=== PATIENT | male | born 1955 | race Caucasian/White ===

== ENCOUNTER 2017-08-11 14:22 | Observation (INO) | payer OTHER ==
--- NOTE | 2017-08-11 14:38 | PDOC ---
Rapid Medical Evaluation Time Seen by Provider: 08/11/17 14:25 Medical Evaluation: 08/11/17 14:25 The patient presents with a chief complaint of: left sided chest pain for "years " but now getting worse. Comes and goes. Just came back from [place] and did not take his meds. He's been off of them for 2 months. Went to [address] [facility] PCP who sent him here for abnorm EKG. PMH: 2 stents in past, CAD. Meds. stattin, plavix, metoprolol, asa 81, lisinopril off for 2 months. I have performed a brief in-person evaluation of this patient; EKG in triage is ST inversions in I, II, AVL, AVF, V2, V4, V5, V6 with LV hypertrophy noted on large QRS peaks. Pertinent physical exam findings: ambulatory, in no respiratory distress I have ordered the following: EKG, CXR, labs, cardiac profile, monitor, in Main ED. The patient will proceed to the ED for further evaluation.
[2017-08-11 14:40] VITALS: BMI 28.7
[2017-08-11 15:02] LABS: BASO % 0.6 % (0-2.0); EOS % 2.3 % (0-4.5); HEMATOCRIT 44.3 % (35.4-49); HEMOGLOBIN 14.8 GM/dL (11.7-16.9); LYMPH % 14.5 % (8-40); MCH 28.4 pg (25.7-33.7); MCHC 33.3 g/dl (32.0-35.9); MEAN CELL VOLUME 85.1 fl (80-96); MEAN PLT VOLUME 9.3 fl (7.5-11.1); MONO % 11.3 % (3.8-10.2); NEUT % 71.3 % (42.8-82.8); PLATELET COUNT 255 K/MM3 (134-434); RBC 5.21 M/mm3 (4.00-5.60); RDW 14.1 % (11.9-15.9); WHITE BLOOD COUNT 7.6 K/mm3 (4.0-10.0)
[2017-08-11] MEDS ORDERED: NITROGLYCERIN SUBLINGUAL 1/150 0.4 MG TAB SL ONE (15:10)
[2017-08-11] MEDS ORDERED: ASPIRIN 81 MG CHEWABLE TABLETS PO ONE (15:10)
[2017-08-11 15:19] LABS: INR 0.95 (0.82-1.09); PROTHROMBIN TIME (PATIENT) 10.7 SEC (9.98-11.88)
[2017-08-11 15:22] LABS: ACTIVATED PTT 31.2 SECONDS (26.9-34.4)
[2017-08-11 15:29] LABS: ALBUMIN 3.8 g/dl (3.4-5.0); ANION GAP 9 (8-16); BILIRUBIN,TOTAL 0.8 mg/dL (0.2-1.0); BLOOD UREA NITROGEN 17 mg/dL (7-18); CALCIUM 8.9 mg/dL (8.5-10.1); CHLORIDE 107 mmol/L (98-107); CO2 24 mmol/L (21-32); GLUCOSE,RANDOM 78 mg/dL (74-106); POTASSIUM 4.2 mmol/L (3.5-5.1); SGOT/AST 15 U/L (15-37); SGPT/ALT 19 U/L (12-78); SODIUM 140 mmol/L (136-145); TOT PROT 7.5 g/dl (6.4-8.2)
[2017-08-11 15:32] LABS: ALK PHOS 78 U/L (45-117)
[2017-08-11] MEDS ORDERED: NITROGLYCERIN SUBLINGUAL 1/150 0.4 MG TAB ONE (15:42)
[2017-08-11] MEDS ORDERED: METOPROLOL TARTRATE 50 MG TABLET (FP) ONE (15:43)
[2017-08-11] MEDS ORDERED: ASPIRIN 81 MG CHEWABLE TABLETS ONE (15:43)
--- NOTE | 2017-08-11 15:55 | PDOC ---
History of Present Illness - General Chief Complaint: Chest Pain Stated Complaint: CHEST PAIN Time Seen by Provider: 08/11/17 14:25 History Source: Patient Exam Limitations: Language Barrier - History of Present Illness Initial Comments: 08/11/17 15:45 Patient is a 61M with history of CAD s/p stenting, HTN, HLD and smoking history here today complaining of chest pain. He was seen in his physicians office and an EKG was done which showed diffuse ST inversions, causing him to be referred to the ER. Patient states that he currently has no chest pain. His chest pain is worsened with exertion and improved with rest. He denies changes in pain with palpation and exertion. He denies history of blood clots, recent travel, leg swelling. Denies fevers, chills, nausea, vomiting. Patient states that he has not been taking his prescribed medication for 2 months. Past History - Past Medical History Allergies/Adverse Reactions: Allergies Allergy/AdvReac Type Severity Reaction Status Date / Time No Known Allergies Allergy Verified 08/11/17 14:32 Cardiac Disorders: Yes (CAD STENTS X2) COPD: No DVT: No HTN: Yes Hypercholesterolemia: Yes - Surgical History Abdominal Surgery: Yes (BILATERAL INGUNIAL HERNIA REPAIR) - Immunization History Immunization Up to Date: Yes - Suicide/Smoking/Psychosocial Hx Smoking History: Current every day smoker Number of Cigarettes Smoked Daily: 3 Information on smoking cessation initiated: No Hx Alcohol Use: No Drug/Substance Use Hx: No Substance Use Type: None Review of Systems - Review of Systems Comments:: 08/11/17 15:47 GENERAL/CONSTITUTIONAL: No fever or chills. No weakness. HEAD, EYES, EARS, NOSE AND THROAT: No change in vision. No sore throat. CARDIOVASCULAR: Positive for chest pain and shortness of breath RESPIRATORY: No cough, wheezing, or hemoptysis. GASTROINTESTINAL: No nausea, vomiting, diarrhea or constipation. GENITOURINARY: No dysuria, frequency, or change in urination. MUSCULOSKELETAL: No joint or muscle swelling or pain. Positive for lower back pain. SKIN: No rash NEUROLOGIC: No headache, vertigo, loss of consciousness, or change in strength/ sensation. ENDOCRINE: No increased thirst. No abnormal weight change HEMATOLOGIC/LYMPHATIC: No anemia, easy bleeding, or history of blood clots. ALLERGIC/IMMUNOLOGIC: No hives or skin allergy. *Physical Exam - Vital Signs Last Vital Signs Temp Pulse Resp BP Pulse Ox 98.1 F 67 15 196/129 98 08/11/17 14:32 08/11/17 14:32 08/11/17 14:32 08/11/17 14:32 08/11/17 14:32 - Physical Exam Comments: 08/11/17 15:48 GENERAL: Awake, alert, and fully oriented, in no acute distress HEAD: No signs of trauma, normocephalic, atraumatic EYES: PERRLA, EOMI, sclera anicteric, conjunctiva clear ENT: Auricles normal inspection, hearing grossly normal, nares patent, oropharynx clear without exudates. Moist mucosa NECK: Normal ROM, supple, no lymphadenopathy, JVD, or masses LUNGS: No distress, speaks full sentences, clear to auscultation bilaterally HEART: Regular rate and rhythm, normal S1 and S2, no murmurs, rubs or gallops, peripheral pulses normal and equal bilaterally. ABDOMEN: Soft, nontender, normoactive bowel sounds. No guarding, no rebound. No masses EXTREMITIES: Normal inspection, Normal range of motion, no edema. No clubbing or cyanosis. NEUROLOGICAL: Cranial nerves II through XII grossly intact. Normal speech, normal gait, no focal sensorimotor deficits SKIN: Warm, Dry, normal turgor, no rashes or lesions noted. Heart Score/ECG Review - History History: Moderately suspicious - Electrocardiogram EKG: Significant ST-depression - Age Age: 45-65 - Risk Factors Risk Factors Heart Score: Yes Hx Hypercholesterolemia, Yes Hx Hypertension, Yes Smoking History Based on the list above the patient has:: >/=3 risk factors or Hx atherosclerotic disease - Troponin Troponin: </= normal limit - Score Heart Score - Total: 6 ED Treatment Course - LABORATORY CBC & Chemistry Diagram: 08/11/17 14:53 08/11/17 14:53 - ADDITIONAL ORDERS Additional order review: Laboratory Results 08/11/17 08/11/17 14:53 14:53 PT with INR 10.70 INR 0.95 PTT (Actin FS) 31.2 Sodium 140 Potassium 4.2 Chloride 107 Carbon Dioxide 24 Anion Gap 9 BUN 17 Creatinine 1.0 Creat Clearance w eGFR > 60 Random Glucose 78 Calcium 8.9 Total Bilirubin 0.8 AST 15 ALT 19 Alkaline Phosphatase 78 Creatine Kinase 93 Troponin I < 0.02 Total Protein 7.5 Albumin 3.8 08/11/17 14:53 RBC 5.21 MCV 85.1 MCHC 33.3 RDW 14.1 MPV 9.3 Neutrophils % 71.3 Lymphocytes % 14.5 Monocytes % 11.3 H Eosinophils % 2.3 Basophils % 0.6 Medical Decision Making - Medical Decision Making 08/11/17 15:49 Patient is a 61M with history of CAD s/p stenting, tobacco abuse, htn, hld here today complaining of chest pain. Vital signs notable for hypertension. Patient history suspect given language barrier and poor compliance. Given 162mg aspirin and 0.4mg nitro. Differential diagnosis includes, but is not limited to: ACS, arrhythmia, pneumonia. Do not believe patient had PE given lack of risk factors , 0 on Well's. EKG shows normal sinus rhythm with rate of 62. Normal axis. No st elevations. ST depressions in V4, V5. T wave inversions in V4-V5, I, II, aVL. Biphasic t wave in V2. EKG shows LVH. No prior EKG available. Concerning EKG. Repeat EKG shows no acute changes from above. Done due to concerning waveforms on monitor. Dr Sanchez from Cardiology consulted and evaluated patient. Recommends admission for stress testing if troponin is negative, schedule cath if positive. Recommends treated blood pressure with metoprolol for now. No need for IV meds given lack of chest pain at this moment. 08/11/17 15:56 Laboratory Tests 08/11/17 08/11/17 08/11/17 14:53 14:53 14:53 WBC 7.6 Hgb 14.8 Hct 44.3 Plt Count 255 INR 0.95 Creat Clearance w eGFR > 60 Troponin I < 0.02 CBC normal. INR normal. Troponin undetectable. CMP reassuring. HEART score 6. Will admit to hospitalist. *DC/Admit/Observation/Transfer Diagnosis at time of Disposition: Chest pain - Discharge Dispostion Condition at time of disposition: Stable Admit: Yes - Referrals Referrals: ON STAFF,NOT [Primary Care Provider] - - Patient Instructions - Post Discharge Activity
--- NOTE | 2017-08-11 16:30 | CON.CARD ---
Consult Consult Specialty:: Cardiology Referred by:: Dr. Marks Reason for Consultation:: Chest pain with abnormal ECG - History of Present Illness Chief Complaint: Chest pain History of Present Illness: 61 year-old Palauan speaking man with a a history of smoking, hypertension, hyperlipidemia, CAD s/p stenting in the past presented to ED 08/11/2017 with chest pain. The patient had intemittent chest pain 2 days prior to his presentation. He was seen in his physicians office and EKG showed marked abnormalities. He was referred to ED for further evaluation. The patient has no chest pain after arrived in ED. His chest pain was predominantly exertional and improved with rest. He denies SOB, palpitation, dizziness, syncope or near syncope. No edema, orthopnea or PND. He has good baseline exercise tolerance in spite of exertional chest pain. He is able to walk 10 block in normal pace. ECG 08/11/2017 showed sinus rhythm. Normal axis. LVH with marked lateral (V4-V6) ST depressionn and T inversion. T wave is biphasic in anterior precordial lead High lateral and inferior T inversion. First set of cardiac enzymes are negative. - History Source History Provided By: Patient Limitations to Obtaining History: No Limitations - Past Medical History Cardio/Vascular: Yes: CAD, HTN - Alcohol/Substance Use Hx Alcohol Use: No - Smoking History Smoking history: Current every day smoker Aproximately how many cigarettes per day: 3 Home Medications - Allergies Allergies/Adverse Reactions: Allergies Allergy/AdvReac Type Severity Reaction Status Date / Time No Known Allergies Allergy Verified 08/11/17 14:32 Review of Systems - Review of Systems Constitutional: reports: No Symptoms Eyes: reports: No Symptoms HENT: reports: No Symptoms Neck: reports: No Symptoms Cardiovascular: reports: Chest Pain Respiratory: reports: No Symptoms Gastrointestinal: reports: No Symptoms Genitourinary: reports: No Symptoms Breasts: reports: No Symptoms Reported Musculoskeletal: reports: No Symptoms Integumentary: reports: No Symptoms Neurological: reports: No Symptoms Endocrine: reports: No Symptoms Hematology/Lymphatic: reports: No Symptoms Psychiatric: reports: No Symptoms Vital Signs: Vital Signs Temperature 98.1 F 08/11/17 14:32 Pulse Rate 67 08/11/17 14:32 Respiratory Rate 15 08/11/17 14:32 Blood Pressure 196/129 08/11/17 14:32 O2 Sat by Pulse Oximetry (%) 98 08/11/17 14:32 General: Well developed. Well nourished. No acute distress. Head: Normocephalic. Atraumatic, Eyes: PERRLA, EOMI. Sclerae anicteric. Conjunctivae clear. Neck: Supple. No JVD. No bruits. Heart: Normal S1, S2: Regularly regular rhythm and rate. No murmur. No gallop or rub. Lungs: Symmetrical air entry. Clear to auscultation. No crackle. No wheezing or rhonchi. Abdomen: Soft. Bowel sound positive. Non tender. No masses. Extremities: No edema. Venous stasis. No clubbing or cyanosis. PD 2+, equal bilaterally. Neuro: Intact, no focal findings. AAO X3. - Other Data Labs, Other Data: CBC, BMP 08/11/17 14:53 08/11/17 14:53 INR, PTT INR 0.95 (0.82-1.09) 08/11/17 14:53 Troponin, BNP 08/11/17 14:53 Troponin I < 0.02 Troponin, BNP 08/11/17 14:53 Troponin I < 0.02 ECG 08/11/2017 showed sinus rhythm. Normal axis. LVH with marked lateral (V4-V6) ST depressionn and T inversion. T wave is biphasic in anterior precordial lead High lateral and inferior T inversion. Imaging - Results EKG: Image Reviewed (ECG 08/11/2017 showed sinus rhythm. Normal axis. LVH with marked lateral (V4-V6) ST depressionn and T inversion. T wave is biphasic in anterior precordial lead High lateral and inferior T inversion.) Assessment/Plan 61 year-old [place] speaking man with a a history of smoking, hypertension, hyperlipidemia, CAD s/p stenting in the past presented to ED 08/11/2017 with chest pain. He had predominantly exertional and improved with rest. ECG 2017 showed sinus rhythm. Normal axis. LVH with marked lateral (V4-V6) ST depressionn and T inversion. T wave is biphasic in anterior precordial lead High lateral and inferior T inversion. First set of cardiac enzymes are negative. 1) Unstable angina with new exertional chest pain and prior history of CAD s/p stenting. -Serial cardiac enzymes and ECG to rule out acute MD. -Start aspirin, Plavix, Metoprolol and atorvastatin. -Obtain an echocardiogram. -Obtain a treadmill exercise nuclear stress test after rule out of MD. 2) HTN: Start Metoprolol tartrate 50 mg BID. May need additional antihypertensive med. We will follow with you.
--- NOTE | 2017-08-11 18:02 | HP ---
<Rigoberto Jeter - Last Filed: 08/11/17 19:37> CHIEF COMPLAINT: chest pain, sent by pcp PCP: Sees doctors at [facility] ([address]) HISTORY OF PRESENT ILLNESS: 61 y/o M w/PMH CAD s/p stents x2, HTN, HLD presents to ER for chest pain and sent in by PCP today. Pt states he has had chest pain for 2 days thats worse with exertion and better with rest. Pain located in mid-sternum and rated at a 7 /10 when it was at its worst. Pt saw PCP today for CP and had EKG done and was sent to ER for chest pain and EKG findings. He denies any SOB, cough, nausea, vomiting, diaphoresis, pain with respiration in chest, reproducible pain, swelling in LE, dysuria, diarrhea, constipation, fevers, chills, abd pain, dizziness. Pt states his chest pain was alleviated in ER before receiving any meds. At this time he still has no chest pain but does complain of b/l temporal JEFF. ER course was notable for: (1) ASA, Lopressor, nitroglycerin, EKG (2) (3) Recent Travel: 20 days ago came back from [email or web address]. PAST MEDICAL HISTORY: CAD, HTN, HLD PAST SURGICAL HISTORY: CAD s/p stents x2 (2006); B/L inguinal hernia repair Social History: Smoking: stopped smoking 2006. Smoked 1/2 - 1 ppd until 2006. Currently smokes 2 cigars/day Alcohol: 1 Liter of rum every weekend Drugs: denies Family History: n-c Allergies No Known Allergies Allergy (Verified 08/11/17 14:32) HOME MEDICATIONS: REVIEW OF SYSTEMS CONSTITUTIONAL: Absent: fever, chills HEENT: +headache Absent: visual changes CARDIOVASCULAR: +chest pain Absent: chest pain, lightheadedness, peripheral edema RESPIRATORY: Absent: cough, shortness of breath GASTROINTESTINAL: Absent: abdominal pain, nausea, vomiting, diarrhea, constipation GENITOURINARY: Absent: dysuria NEUROLOGIC: +headache Absent: dizziness PHYSICAL EXAMINATION Vital Signs - 24 hr 08/11/17 08/11/17 14:32 16:46 Temperature 98.1 F Pulse Rate 67 Pulse Rate [ 57 L Apical] Respiratory 15 20 Rate Blood Pressure 196/129 Blood Pressure 141/100 [Right Arm] O2 Sat by Pulse 98 100 Oximetry (%) GENERAL: Awake, alert, and fully oriented, in no acute distress. HEAD: Normal with no signs of trauma. EYES: extraocular movements intact, sclera anicteric, conjunctiva clear. EARS, NOSE, THROAT: Moist mucous membranes. LUNGS: Breath sounds equal, clear to auscultation bilaterally. No wheezes, and no crackles. No accessory muscle use. HEART: Regular rate and rhythm, normal S1 and S2, +s4 heart sound, no murmurs ABDOMEN: Soft, nontender, not distended, normoactive bowel sounds, no guarding UPPER EXTREMITIES: 2+ pulses, No peripheral edema. LOWER EXTREMITIES: 2+ pulses, No peripheral edema. NEUROLOGICAL: Normal speech. Gait not observed. PSYCHIATRIC: Cooperative. Good eye contact. Appropriate mood and affect. SKIN: Warm, dry Laboratory Results - last 24 hr 08/11/17 08/11/17 08/11/17 14:53 14:53 14:53 WBC 7.6 RBC 5.21 Hgb 14.8 Hct 44.3 MCV 85.1 MCH 28.4 MCHC 33.3 RDW 14.1 Plt Count 255 MPV 9.3 Neutrophils % 71.3 Lymphocytes % 14.5 Monocytes % 11.3 H Eosinophils % 2.3 Basophils % 0.6 PT with INR 10.70 INR 0.95 PTT (Actin FS) 31.2 Sodium 140 Potassium 4.2 Chloride 107 Carbon Dioxide 24 Anion Gap 9 BUN 17 Creatinine 1.0 Creat Clearance w eGFR > 60 Random Glucose 78 Calcium 8.9 Total Bilirubin 0.8 AST 15 ALT 19 Alkaline Phosphatase 78 Creatine Kinase 93 Troponin I < 0.02 Total Protein 7.5 Albumin 3.8 Imaging: Head CT: No evidence of acute intracranial pathology CXR: No definite airspace consolidation or pleural effusion. EKG: Normal axis. LVH with marked lateral (V4-V6) ST depressionn and T inversion. T wave is biphasic in anterior precordial lead High lateral and inferior T inversion.) ASSESSMENT/PLAN: 61 y/o M w/PMH CAD s/p stents x2, HTN, HLD presents to ER for chest pain and being evaluated for ACS vs unstable angina. -Chest pain secondary to unstable angina, r/o ACS -Trend trops -c/w aspirin, plavix, metoprolol, atorvastatin -echo, lipid panel, tsh -cardio consulted, follow with cardio recs -JEFF -Head CT negative for acute pathology, there was concern for bleed with elevated BP and Wellen's sign on EKG -HTN urgency -metoprolol tartrate given in er -c/w metoprolol 50mg bid -better controlled s/p metoprolol in ER -HLD -c/w atorvastatin -DVT ppx -SCDs -FEN -No fluids -monitor electrolytes -NPO after midnight -Dispo: Admit to tele Visit type - Emergency Visit Emergency Visit: Yes ED Registration Date: 08/11/17 Care time: The patient presented to the Emergency Department on the above date and was hospitalized for further evaluation of their emergent condition. - New Patient This patient is new to me today: Yes Date on this admission: 08/11/17 - Critical Care Critical Care patient: No Hospitalist Screening - Colonoscopy Questionnaire Colonoscopy Questionnaire: Colonoscopy Questionnaire - Patient: 50 - 75 years old and never had a screening colonoscopy: Unknown History of colon or rectal polyps, or CA: Unknown History of IBD, Crohn's disease or UC: Unknown History of abdominal radiation therapy as a child: Unknown - Relative: 1 with colon or rectal CA, or polyps at age 60 or younger: Unknown Colon or rectal CA diagnosed at age 45 or younger: Unknown Multiple relatives with colon or rectal CA: Unknown - Outcome: Screening Result: Negative Screen <Sundeep Knight - Last Filed: 08/11/17 20:19> Patient is c/o having headache, CT of head was ordered which was negative for bleed, also stated that he has not eaten since this morning which might be the reason for his headache, besides having elevated blood pressure. Presneted for having CP, will get 3 sets of Troponin, ekg in am. Cardio is consulted . Vital Signs Temperature 98.0 F 08/11/17 20:11 Pulse Rate 62 08/11/17 20:11 Respiratory Rate 18 08/11/17 20:11 Blood Pressure 143/90 08/11/17 20:11 O2 Sat by Pulse Oximetry (%) 98 08/11/17 20:11 CBCD WBC 7.6 K/mm3 (4.0-10.0) 08/11/17 14:53 RBC 5.21 M/mm3 (4.00-5.60) 08/11/17 14:53 Hgb 14.8 GM/dL (11.7-16.9) 08/11/17 14:53 Hct 44.3 % (35.4-49) 08/11/17 14:53 MCV 85.1 fl (80-96) 08/11/17 14:53 MCHC 33.3 g/dl (32.0-35.9) 08/11/17 14:53 RDW 14.1 % (11.9-15.9) 08/11/17 14:53 Plt Count 255 K/MM3 (134-434) 08/11/17 14:53 MPV 9.3 fl (7.5-11.1) 08/11/17 14:53 CMP Sodium 140 mmol/L (136-145) 08/11/17 14:53 Potassium 4.2 mmol/L (3.5-5.1) 08/11/17 14:53 Chloride 107 mmol/L (98-107) 08/11/17 14:53 Carbon Dioxide 24 mmol/L (21-32) 08/11/17 14:53 Anion Gap 9 (8-16) 08/11/17 14:53 BUN 17 mg/dL (7-18) 08/11/17 14:53 Creatinine 1.0 mg/dL (0.7-1.3) 08/11/17 14:53 Creat Clearance w eGFR > 60 (>60) 08/11/17 14:53 Random Glucose 78 mg/dL (74-106) 08/11/17 14:53 Calcium 8.9 mg/dL (8.5-10.1) 08/11/17 14:53 Total Bilirubin 0.8 mg/dL (0.2-1.0) 08/11/17 14:53 AST 15 U/L (15-37) 08/11/17 14:53 ALT 19 U/L (12-78) 08/11/17 14:53 Alkaline Phosphatase 78 U/L (45-117) 08/11/17 14:53 Total Protein 7.5 g/dl (6.4-8.2) 08/11/17 14:53 Albumin 3.8 g/dl (3.4-5.0) 08/11/17 14:53 CARDIAC ENZYMES Creatine Kinase 93 IU/L (39-308) 08/11/17 14:53 Troponin I < 0.02 ng/ml (0.00-0.05) 08/11/17 14:53 Current Medications Generic Name Dose Route Start Last Admin Trade Name Kimberley PRN Reason Stop Dose Admin Acetaminophen 650 mg 08/11/17 19:30 Tylenol - PO Q6H PRN PAIN Aspirin 81 mg 08/12/17 10:00 Ecotrin - PO DAILY PENDING SALE TO [facility] Atorvastatin Calcium 20 mg 08/11/17 22:00 Lipitor - PO HS PENDING SALE TO [facility] Clopidogrel Bisulfate 75 mg 08/12/17 10:00 Plavix - PO DAILY PENDING SALE TO [facility] Metoprolol Tartrate 50 mg 08/11/17 22:00 Lopressor - PO BID PENDING SALE TO [facility] Home Medications Medication Instructions Recorded Aspirin 81 mg PO DAILY 08/11/17 Atorvastatin Ca [Lipitor] 20 mg PO HS 08/11/17 Clopidogrel Bisulfate [Plavix] 75 mg PO DAILY 08/11/17 Lisinopril 10 mg PO DAILY 08/11/17 Metoprolol Succinate 25 mg PO DAILY 08/11/17 Hospitalist Screening - Colonoscopy Questionnaire Colonoscopy Questionnaire: Colonoscopy Questionnaire
[2017-08-11] MEDS ORDERED: ACETAMINOPHEN 325 MG TABLET (FP) PO PRN (19:30)
[2017-08-11] MEDS: METOPROLOL TARTRATE 50 MG TABLET (FP) PO SCH (23:16)
[2017-08-11] MEDS ORDERED: amLODIPine BESYLATE 5 MG TABLET (FP) PO ONE (23:45)
[2017-08-12] MEDS: ATORVASTATIN CA 20 MG TABLET (FP) PO SCH ×2 (00:10→21:48)
[2017-08-12 05:40] LABS: BASO % 0.6 % (0-2.0); EOS % 4.7 % (0-4.5); HEMATOCRIT 40.7 % (35.4-49); HEMOGLOBIN 13.9 GM/dL (11.7-16.9); LYMPH % 18.8 % (8-40); MCH 29.3 pg (25.7-33.7); MCHC 34.1 g/dl (32.0-35.9); MEAN PLT VOLUME 9.7 fl (7.5-11.1); MONO % 14.9 % (3.8-10.2); PLATELET COUNT 245 K/MM3 (134-434); RBC 4.74 M/mm3 (4.00-5.60); RDW 13.9 % (11.9-15.9); WHITE BLOOD COUNT 6.6 K/mm3 (4.0-10.0)
[2017-08-12 06:43] LABS: ALBUMIN 3.3 g/dl (3.4-5.0); ANION GAP 9 (8-16); BLOOD UREA NITROGEN 18 mg/dL (7-18); CALCIUM 9.3 mg/dL (8.5-10.1); CHLORIDE 106 mmol/L (98-107); CHOLESTEROL 221 mg/dL (50-200); CO2 27 mmol/L (21-32); CREATININE 1.1 mg/dL (0.7-1.3); GLUCOSE,RANDOM 91 mg/dL (74-106); MAGNESIUM 2.1 mg/dL (1.8-2.4); PHOSPHOROUS 4.1 mg/dL (2.5-4.9); POTASSIUM 4.2 mmol/L (3.5-5.1); SGOT/AST 15 U/L (15-37); SGPT/ALT 17 U/L (12-78); SODIUM 142 mmol/L (136-145); TOT PROT 6.7 g/dl (6.4-8.2)
[2017-08-12 06:45] LABS: ALK PHOS 70 U/L (45-117); BILIRUBIN,TOTAL 1.1 mg/dL (0.2-1.0); TRIGLYCERIDES 123 mg/dL (35-160)
[2017-08-12 07:29] LABS: LDL CHOLESTEROL (ONLY SJRH) 139 mg/dL (5-100)
[2017-08-12 07:36] LABS: HDL CHOLESTEROL 46 mg/dL (40-60)
[2017-08-12] MEDS: METOPROLOL TARTRATE 50 MG TABLET (FP) PO SCH ×2 (09:31→21:48)
[2017-08-12] MEDS: ASPIRIN COATED 81 MG TABLET.EC PO SCH (09:31)
[2017-08-12] MEDS: CLOPIDOGREL BISULFATE 75 MG TABLET (FP) PO SCH (09:31)
--- NOTE | 2017-08-12 12:02 | PN ---
<Ryan Leigh - Last Filed: 08/12/17 17:23> Physical Exam: SUBJECTIVE: Patient seen and examined at bedside. No new complaints. States that his chest pain has resolved. OBJECTIVE: Vital Signs Period Temp Pulse Resp BP Sys/Vela Pulse Ox Last 24 Hr 97.8 F-98.1 F 53-67 14-20 141-196/89-129 95-100 GENERAL: The patient is awake, alert, and fully oriented, in no acute distress. NECK: Trachea midline, full range of motion, supple. LUNGS: Breath sounds equal, clear to auscultation bilaterally, no wheezes, no crackles, no accessory muscle use. HEART: Regular rate and rhythm, S1, S2 without murmur, rub or gallop. ABDOMEN: Soft, nontender, nondistended, normoactive bowel sounds, no guarding, no rebound, no hepatosplenomegaly, no masses. EXTREMITIES: 2+ pulses, warm, well-perfused, no edema. NEUROLOGICAL: Cranial nerves II through X grossly intact. Normal speech, gait not observed. SKIN: Warm, dry, normal turgor, no rashes or lesions noted Laboratory Results - last 24 hr 08/11/17 08/11/17 08/11/17 14:53 14:53 14:53 WBC 7.6 RBC 5.21 Hgb 14.8 Hct 44.3 MCV 85.1 MCH 28.4 MCHC 33.3 RDW 14.1 Plt Count 255 MPV 9.3 Neutrophils % 71.3 Lymphocytes % 14.5 Monocytes % 11.3 H Eosinophils % 2.3 Basophils % 0.6 PT with INR 10.70 INR 0.95 PTT (Actin FS) 31.2 Sodium 140 Potassium 4.2 Chloride 107 Carbon Dioxide 24 Anion Gap 9 BUN 17 Creatinine 1.0 Creat Clearance w eGFR > 60 Random Glucose 78 Calcium 8.9 Phosphorus Magnesium Total Bilirubin 0.8 AST 15 ALT 19 Alkaline Phosphatase 78 Creatine Kinase 93 Troponin I < 0.02 Total Protein 7.5 Albumin 3.8 Triglycerides Cholesterol Total LDL Cholesterol HDL Cholesterol TSH 08/11/17 08/12/17 08/12/17 22:10 05:15 05:15 WBC 6.6 RBC 4.74 Hgb 13.9 Hct 40.7 MCV 86.0 MCH 29.3 MCHC 34.1 RDW 13.9 Plt Count 245 MPV 9.7 Neutrophils % 61.0 Lymphocytes % 18.8 D Monocytes % 14.9 H Eosinophils % 4.7 H D Basophils % 0.6 PT with INR INR PTT (Actin FS) Sodium 142 Potassium 4.2 Chloride 106 Carbon Dioxide 27 Anion Gap 9 BUN 18 Creatinine 1.1 Creat Clearance w eGFR > 60 Random Glucose 91 Calcium 9.3 Phosphorus 4.1 Magnesium 2.1 Total Bilirubin 1.1 H D AST 15 ALT 17 Alkaline Phosphatase 70 Creatine Kinase 76 Troponin I 0.03 D Total Protein 6.7 Albumin 3.3 L Triglycerides 123 Cholesterol 221 H Total LDL Cholesterol 139 H HDL Cholesterol 46 TSH 1.36 08/12/17 05:15 WBC RBC Hgb Hct MCV MCH MCHC RDW Plt Count MPV Neutrophils % Lymphocytes % Monocytes % Eosinophils % Basophils % PT with INR INR PTT (Actin FS) Sodium Potassium Chloride Carbon Dioxide Anion Gap BUN Creatinine Creat Clearance w eGFR Random Glucose Calcium Phosphorus Magnesium Total Bilirubin AST ALT Alkaline Phosphatase Creatine Kinase 68 Troponin I 0.03 Total Protein Albumin Triglycerides Cholesterol Total LDL Cholesterol HDL Cholesterol TSH Active Medications Generic Name Dose Route Start Last Admin Trade Name Freq PRN Reason Stop Dose Admin Acetaminophen 650 mg 08/11/17 19:30 Tylenol - PO Q6H PRN PAIN Aspirin 81 mg 08/12/17 10:00 08/12/17 09:31 Ecotrin - PO 81 mg DAILY [facility] Administration Atorvastatin Calcium 20 mg 08/11/17 22:00 08/12/17 00:10 Lipitor - PO 20 mg HS [facility] Administration Clopidogrel Bisulfate 75 mg 08/12/17 10:00 08/12/17 09:31 Plavix - PO 75 mg DAILY [facility] Administration Metoprolol Tartrate 50 mg 08/11/17 22:00 08/12/17 09:31 Lopressor - PO 50 mg BID [facility] Administration ASSESSMENT/PLAN: The patient is a 61 y/o M w/PMH CAD s/p stents x2, HTN, HLD admitted for chest pain and being evaluated for ACS vs unstable angina. #Chest pain likely 2/2 unstable angina -trops negative x3 -c/w aspirin, plavix, metoprolol, atorvastatin -cardio consulted -s/p first part of Lexiscan pharmacologic stress test today -will f/u further cardio recs #Hypertensive urgency- controlled -c/w metoprolol 50mg bid #Headache- resolved -Head CT negative for acute pathology, there was concern for bleed with elevated BP and Wellen's sign on EKG #HLD -c/w atorvastatin #DVT ppx -SCDs #FEN -No fluids -monitor electrolytes -sodium controlled diet; NPO past midnight #Dispo - Admit to tele Visit type - Emergency Visit Emergency Visit: Yes ED Registration Date: 08/12/17 Care time: The patient presented to the Emergency Department on the above date and was hospitalized for further evaluation of their emergent condition. - New Patient This patient is new to me today: Yes Date on this admission: 08/12/17 - Critical Care Critical Care patient: No <Mary JanedemiSundeep - Last Filed: 08/12/17 19:42> Physical Exam: Patient seen and examined. Agree with the resident's plan. Patient has no further chest pain. Vital Signs Temperature 98 F 08/12/17 16:00 Pulse Rate 54 L 08/12/17 16:00 Respiratory Rate 18 08/12/17 16:00 Blood Pressure 138/90 08/12/17 16:00 O2 Sat by Pulse Oximetry (%) 98 08/12/17 09:00 CBCD WBC 6.6 K/mm3 (4.0-10.0) 08/12/17 05:15 RBC 4.74 M/mm3 (4.00-5.60) 08/12/17 05:15 Hgb 13.9 GM/dL (11.7-16.9) 08/12/17 05:15 Hct 40.7 % (35.4-49) 08/12/17 05:15 MCV 86.0 fl (80-96) 08/12/17 05:15 MCHC 34.1 g/dl (32.0-35.9) 08/12/17 05:15 RDW 13.9 % (11.9-15.9) 08/12/17 05:15 Plt Count 245 K/MM3 (134-434) 08/12/17 05:15 MPV 9.7 fl (7.5-11.1) 08/12/17 05:15 CMP Sodium 142 mmol/L (136-145) 08/12/17 05:15 Potassium 4.2 mmol/L (3.5-5.1) 08/12/17 05:15 Chloride 106 mmol/L (98-107) 08/12/17 05:15 Carbon Dioxide 27 mmol/L (21-32) 08/12/17 05:15 Anion Gap 9 (8-16) 08/12/17 05:15 BUN 18 mg/dL (7-18) 08/12/17 05:15 Creatinine 1.1 mg/dL (0.7-1.3) 08/12/17 05:15 Creat Clearance w eGFR > 60 (>60) 08/12/17 05:15 Calcium 9.3 mg/dL (8.5-10.1) 08/12/17 05:15 Total Bilirubin 1.1 mg/dL (0.2-1.0) H D 08/12/17 05:15 AST 15 U/L (15-37) 08/12/17 05:15 ALT 17 U/L (12-78) 08/12/17 05:15 Alkaline Phosphatase 70 U/L (45-117) 08/12/17 05:15 Total Protein 6.7 g/dl (6.4-8.2) 08/12/17 05:15 Albumin 3.3 g/dl (3.4-5.0) L 08/12/17 05:15 Current Medications Generic Name Dose Route Start Last Admin Trade Name Freq PRN Reason Stop Dose Admin Acetaminophen 650 mg 08/11/17 19:30 Tylenol - PO Q6H PRN PAIN Aspirin 81 mg 08/12/17 10:00 08/12/17 09:31 Ecotrin - PO 81 mg DAILY [facility] Administration Atorvastatin Calcium 20 mg 08/11/17 22:00 08/12/17 00:10 Lipitor - PO 20 mg HS [facility] Administration Clopidogrel Bisulfate 75 mg 08/12/17 10:00 08/12/17 09:31 Plavix - PO 75 mg DAILY [facility] Administration Metoprolol Tartrate 50 mg 08/11/17 22:00 08/12/17 09:31 Lopressor - PO 50 mg BID [facility] Administration Home Medications Medication Instructions Recorded Aspirin 81 mg PO DAILY 08/11/17 Atorvastatin Ca [Lipitor] 20 mg PO HS 08/11/17 Clopidogrel Bisulfate [Plavix] 75 mg PO DAILY 08/11/17 Lisinopril 10 mg PO DAILY 08/11/17 Metoprolol Succinate 25 mg PO DAILY 08/11/17
--- NOTE | 2017-08-12 15:19 | PN ---
Progress Note, Physician Chief Complaint: Patient appears comfortable at the time of exam. He has no recurrent chest pain. No SOB or palpitation. History of Present Illness: 61 year-old [place] speaking man with a a history of smoking, hypertension, hyperlipidemia, CAD s/p stenting in the past presented to ED 08/11/2017 with chest pain with marked ECG abnormalities. Acute VT was ruled out. He has been stable without recurrent chest pain. - Current Medication List Current Medications: Active Medications Acetaminophen (Tylenol -) 650 mg PO Q6H PRN PRN Reason: PAIN Aspirin (Ecotrin -) 81 mg PO DAILY [facility] Last Admin: 08/12/17 09:31 Dose: 81 mg Atorvastatin Calcium (Lipitor -) 20 mg PO HS [facility] Last Admin: 08/12/17 00:10 Dose: 20 mg Clopidogrel Bisulfate (Plavix -) 75 mg PO DAILY [facility] Last Admin: 08/12/17 09:31 Dose: 75 mg Metoprolol Tartrate (Lopressor -) 50 mg PO BID [facility] Last Admin: 08/12/17 09:31 Dose: 50 mg - Objective Vital Signs: Vital Signs Temperature 97.8 F 08/12/17 08:00 Pulse Rate 63 08/12/17 08:00 Respiratory Rate 16 08/12/17 08:00 Blood Pressure 163/97 08/12/17 08:00 O2 Sat by Pulse Oximetry (%) 98 08/12/17 09:00 General: Well developed. Well nourished. No acute distress. Head: Normocephalic. Atraumatic, Eyes: PERRLA, EOMI. Sclerae anicteric. Conjunctivae clear. Neck: Supple. No JVD. No bruits. Heart: Normal S1, S2: Regularly regular rhythm and rate. No murmur. No gallop or rub. Lungs: Symmetrical air entry. Clear to auscultation. No crackle. No wheezing or rhonchi. Abdomen: Soft. Bowel sound positive. Non tender. No masses. Extremities: No edema. Venous stasis. No clubbing or cyanosis. PD 2+, equal bilaterally. Neuro: Intact, no focal findings. AAO X3. Labs: CBC, BMP 08/12/17 05:15 08/12/17 05:15 INR, PTT INR 0.95 (0.82-1.09) 03/14/18 14:53 Assessment/Plan 61 year-old [place] speaking man with a a history of smoking, hypertension, hyperlipidemia, CAD s/p stenting in the past presented to ED 08/11/2017 with chest pain with marked ECG abnormalities. Acute VT was ruled out. He has been stable without recurrent chest pain. 1) Unstable angina with new exertional chest pain and prior history of CAD s/p stenting. -Treadmill exercise nuclear stress test is in process. He will have the resting portion today and stress portion tomorrow. -Continue aspirin, Plavix, Metoprolol and atorvastatin. 2) HTN: BP still elevated. Continue Metoprolol tartrate 50 mg BID. Add Nifedipine 60 mg daily. Further recommendation pending to nuclear stress test. We will follow with you.
--- NOTE | 2017-08-12 16:42 | EKG ---
Test Reason : Blood Pressure : / mmHG Vent. Rate : 062 BPM Atrial Rate : 062 BPM P-R Int : 162 ms QRS Dur : 090 ms QT Int : 426 ms P-R-T Axes : 056 016 183 degrees QTc Int : 432 ms NORMAL SINUS RHYTHM LEFT VENTRICULAR HYPERTROPHY WITH REPOLARIZATION ABNORMALITY INFERIOR INFARCT , AGE UNDETERMINED ABNORMAL ECG NO PREVIOUS ECGS AVAILABLE Confirmed by ANDREW CRUZ MD ([id number]) on 08/12/2017 4:41:37 PM Referred By: Confirmed By:ANDREW CRUZ MD
[2017-08-13 06:11] LABS: HEMOGLOBIN 14.2 GM/dL (11.7-16.9); MCH 28.8 pg (25.7-33.7); MCHC 33.8 g/dl (32.0-35.9); MEAN CELL VOLUME 85.3 fl (80-96); MEAN PLT VOLUME 10.1 fl (7.5-11.1); PLATELET COUNT 237 K/MM3 (134-434); RBC 4.93 M/mm3 (4.00-5.60); RDW 13.9 % (11.9-15.9); WHITE BLOOD COUNT 6.1 K/mm3 (4.0-10.0)
[2017-08-13 06:27] LABS: INR 0.97 (0.82-1.09)
[2017-08-13 06:40] LABS: ANION GAP 12 (8-16); BLOOD UREA NITROGEN 23 mg/dL (7-18); CALCIUM 8.7 mg/dL (8.5-10.1); CHLORIDE 106 mmol/L (98-107); CO2 23 mmol/L (21-32); GLUCOSE,RANDOM 92 mg/dL (74-106); MAGNESIUM 2.3 mg/dL (1.8-2.4); PHOSPHOROUS 3.3 mg/dL (2.5-4.9); POTASSIUM 4.2 mmol/L (3.5-5.1); SODIUM 141 mmol/L (136-145)
--- NOTE | 2017-08-13 07:49 | PN ---
Physical Exam: SUBJECTIVE: Patient seen and examined OBJECTIVE: Vital Signs Period Temp Pulse Resp BP Sys/Vela Pulse Ox Last 24 Hr 97.8 F-98.5 F 53-63 16-18 138-163/90-97 97-98 GENERAL: The patient is awake, alert, and fully oriented, in no acute distress. HEAD: Normal with no signs of trauma. EYES: PERRL, extraocular movements intact, sclera anicteric, conjunctiva clear. No ptosis. ENT: Ears normal, nares patent, oropharynx clear without exudates, moist mucous membranes. NECK: Trachea midline, full range of motion, supple. LUNGS: Breath sounds equal, clear to auscultation bilaterally, no wheezes, no crackles, no accessory muscle use. HEART: Regular rate and rhythm, S1, S2 without murmur, rub or gallop. ABDOMEN: Soft, nontender, nondistended, normoactive bowel sounds, no guarding, no rebound, no hepatosplenomegaly, no masses. EXTREMITIES: 2+ pulses, warm, well-perfused, no edema. NEUROLOGICAL: Cranial nerves II through XII grossly intact. Normal speech, gait not observed. PSYCH: Normal mood, normal affect. SKIN: Warm, dry, normal turgor, no rashes or lesions noted Laboratory Results - last 24 hr 08/13/17 08/13/17 08/13/17 06:00 06:00 06:00 WBC 6.1 RBC 4.93 Hgb 14.2 Hct 42.0 MCV 85.3 MCH 28.8 MCHC 33.8 RDW 13.9 Plt Count 237 MPV 10.1 PT with INR 11.00 INR 0.97 Sodium 141 Potassium 4.2 Chloride 106 Carbon Dioxide 23 Anion Gap 12 BUN 23 H D Creatinine 1.0 Random Glucose 92 Calcium 8.7 Phosphorus 3.3 Magnesium 2.3 Active Medications Generic Name Dose Route Start Last Admin Trade Name Freq PRN Reason Stop Dose Admin Acetaminophen 650 mg 08/11/17 19:30 Tylenol - PO Q6H PRN PAIN Aspirin 81 mg 08/12/17 10:00 08/12/17 09:31 Ecotrin - PO 81 mg DAILY [facility] Administration Atorvastatin Calcium 20 mg 08/11/17 22:00 08/12/17 21:48 Lipitor - PO 20 mg HS [facility] Administration Clopidogrel Bisulfate 75 mg 08/12/17 10:00 08/12/17 09:31 Plavix - PO 75 mg DAILY [facility] Administration Metoprolol Tartrate 50 mg 08/11/17 22:00 08/12/17 21:48 Lopressor - PO 50 mg BID [facility] Administration ASSESSMENT/PLAN: The patient is a 61 y/o M w/PMH CAD s/p stents x2, HTN, HLD admitted for chest pain and being evaluated for ACS vs unstable angina. #Chest pain likely 2/2 unstable angina -trops negative x3 -c/w aspirin, plavix, metoprolol, atorvastatin -cardio consulted -s/p first part of Lexiscan pharmacologic stress test; for second part today. -will f/u further cardio recs #Hypertensive urgency- controlled -c/w metoprolol 50mg bid #Headache- resolved -Head CT negative for acute pathology, there was concern for bleed with elevated BP and Wellen's sign on EKG #HLD -c/w atorvastatin #DVT ppx -SCDs #FEN -No fluids -monitor electrolytes -sodium controlled diet; NPO past midnight #Dispo - Admit to tele
[2017-08-13] MEDS ORDERED: REGADENOSON 0.4 MG/5 ML PRE-FILLED SYRINGE IVPUSH ONE ×2 (10:06→10:15)
[2017-08-13] MEDS ORDERED: AMINOPHYLLINE 250 MG/10 ML VIAL ONE (11:08)
[2017-08-13] MEDS ORDERED: AMINOPHYLLINE 250 MG/10 ML VIAL IVPUSH ONE (11:45)
[2017-08-13] MEDS ORDERED: ASPIRIN 81 MG CHEWABLE TABLETS PO ONE ×2 (13:03)
[2017-08-13] MEDS ORDERED: HEPARIN NA (PORCINE) 5,000 UNITS/ML 1ML VIAL IVPUSH PRN ×4 (13:07→13:13)
[2017-08-13] MEDS: CLOPIDOGREL BISULFATE 75 MG TABLET (FP) PO SCH (13:07)
[2017-08-13] MEDS: METOPROLOL TARTRATE 50 MG TABLET (FP) PO SCH (13:07)
[2017-08-13] MEDS ORDERED: NITROGLYCERIN 2% OINTMENT - 1GM PACKET TD ONE (13:09)
[2017-08-13] MEDS: ASPIRIN COATED 81 MG TABLET.EC PO SCH (13:09)
[2017-08-13] MEDS ORDERED: HEPARIN - 25,000 UNIT in SODIUM CHLORIDE 495 ML IV SCH (13:15)
[2017-08-13] MEDS ORDERED: HEPARIN INFUSION - 25,000 UNITS/500 ML INFUS.BAG IVPB SCH (13:15)
[2017-08-13 13:55] VITALS: BP 152/95
[2017-08-13 14:41] VITALS: PULSE 62; TEMP 97.8
--- NOTE | 2017-08-13 14:46 | EKG ---
Test Reason : Blood Pressure : / mmHG Vent. Rate : 053 BPM Atrial Rate : 053 BPM P-R Int : 164 ms QRS Dur : 082 ms QT Int : 470 ms P-R-T Axes : 060 015 170 degrees QTc Int : 441 ms SINUS BRADYCARDIA INFERIOR INFARCT (CITED ON OR BEFORE 11-AUG-2017) ABNORMAL ECG Confirmed by ATTILA TONEY MD ([id number]) on 08/13/2017 2:45:50 PM Referred By: Confirmed By:ATTILA TONEY MD
--- NOTE | 2017-08-13 15:04 | PN ---
Progress Note, Physician Chief Complaint: Patient had recurrent chest pain. IV heparin started. History of Present Illness: 61 year-old [place] Islander speaking man with a a history of smoking, hypertension, hyperlipidemia, CAD s/p stenting in the past presented to ED 08/11/2017 with chest pain with marked ECG abnormalities. Echo 08/12/2017 showed normal LV size and wall motion. LVEF = 70%. Nuclear stress test 08/13/2017 (preliminary): Moderate to large size and severe stress induced ischemia of lateral wall. Fixed defect of inferior wall with inferoapical periinfarct ischemia. LVE = 41% from gated study. - Current Medication List Current Medications: Active Medications Acetaminophen (Tylenol -) 650 mg PO Q6H PRN PRN Reason: PAIN Aspirin (Ecotrin -) 81 mg PO DAILY [facility] Last Admin: 08/13/17 13:09 Dose: Not Given Atorvastatin Calcium (Lipitor -) 20 mg PO HS [facility] Last Admin: 08/12/17 21:48 Dose: 20 mg Clopidogrel Bisulfate (Plavix -) 75 mg PO DAILY [facility] Last Admin: 08/13/17 13:07 Dose: 75 mg Heparin Sodium (Porcine) (Heparin -) 1,000 unit IVPUSH PRN PRN PRN Reason: Heparin Heparin Sodium (Porcine) (Heparin -) 5,000 unit IVPUSH PRN PRN PRN Reason: Heparin Heparin Sodium/Dextrose (Heparin Infusion -) 25,000 units in 500 mls @ 20 mls/ hr IVPB TITR [facility]; 1,000 UNITS/HR PRN Reason: Protocol Last Admin: 08/13/17 13:15 Dose: 1,000 units/hr, 20 mls/hr Metoprolol Tartrate (Lopressor -) 50 mg PO BID [facility] Last Admin: 08/13/17 13:07 Dose: Not Given - Objective Vital Signs: Vital Signs Temperature 97.8 F 08/13/17 14:00 Pulse Rate 62 08/13/17 14:00 Respiratory Rate 18 08/13/17 14:00 Blood Pressure 152/95 08/13/17 14:00 O2 Sat by Pulse Oximetry (%) 100 08/13/17 08:00 General: Well developed. Well nourished. No acute distress. Head: Normocephalic. Atraumatic, Eyes: PERRLA, EOMI. Sclerae anicteric. Conjunctivae clear. Neck: Supple. No JVD. No bruits. Heart: Normal S1, S2: Regularly regular rhythm and rate. No murmur. No gallop or rub. Lungs: Symmetrical air entry. Clear to auscultation. No crackle. No wheezing or rhonchi. Abdomen: Soft. Bowel sound positive. Non tender. No masses. Extremities: No edema. Venous stasis. No clubbing or cyanosis. PD 2+, equal bilaterally. Neuro: Intact, no focal findings. AAO X3. Labs: CBC, BMP 08/13/17 06:00 08/13/17 06:00 INR, PTT INR 0.97 (0.82-1.09) 08/13/17 06:00 Assessment/Plan 61 year-old [place] Island[place] speaking man with a a history of smoking, hypertension, hyperlipidemia, CAD s/p stenting in the past presented to ED 08/11/2017 with chest pain with marked ECG abnormalities. Echo 08/12/2017 showed normal LV size and wall motion. LVEF = 70%. Nuclear stress test 08/13/2017 (preliminary): Moderate to large size and severe stress induced ischemia of lateral wall. Fixed defect of inferior wall with inferoapical periinfarct ischemia. LVE = 41% from gated study. . 1) Unstable angina with new exertional chest pain and evidence of stress induced ischemia. -Transfer to [facility] for cardiac cath. -Continue IV heparin. -Continue aspirin, Plavix, Metoprolol and atorvastatin. 2) HTN: BP still elevated. Continue Metoprolol tartrate 50 mg BID. Add Nifedipine 60 mg daily.
--- NOTE | 2017-08-13 17:51 | DS ---
Physical Exam: SUBJECTIVE: Patient seen and examined at bedside. No new complaints. For second part of stress test today. OBJECTIVE: Vital Signs Period Temp Pulse Resp BP Sys/Vela Pulse Ox Last 24 Hr 97.8 F-98.5 F 53-64 18-18 144-157/90-97 97-100 PHYSICAL EXAM GENERAL: The patient is awake, alert, and fully oriented, in no acute distress. LUNGS: Breath sounds equal, clear to auscultation bilaterally, no wheezes, no crackles, no accessory muscle use. HEART: Regular rate and rhythm, S1, S2 without murmur, rub or gallop. ABDOMEN: Soft, nontender, nondistended, normoactive bowel sounds, no guarding, no rebound, no hepatosplenomegaly, no masses. EXTREMITIES: 2+ pulses, warm, well-perfused, no edema. NEUROLOGICAL: Cranial nerves II through X grossly intact. Normal speech, gait not observed. PSYCH: Normal mood, normal affect. SKIN: Warm, dry, normal turgor, no rashes or lesions noted. LABS Laboratory Results - last 24 hr 08/13/17 08/13/17 08/13/17 06:00 06:00 06:00 WBC 6.1 RBC 4.93 Hgb 14.2 Hct 42.0 MCV 85.3 MCH 28.8 MCHC 33.8 RDW 13.9 Plt Count 237 MPV 10.1 PT with INR 11.00 INR 0.97 PTT (Actin FS) Sodium 141 Potassium 4.2 Chloride 106 Carbon Dioxide 23 Anion Gap 12 BUN 23 H D Creatinine 1.0 Random Glucose 92 Calcium 8.7 Phosphorus 3.3 Magnesium 2.3 Troponin I 08/13/17 08/13/17 13:28 13:30 WBC RBC Hgb Hct MCV MCH MCHC RDW Plt Count MPV PT with INR INR PTT (Actin FS) 37.3 H Sodium Potassium Chloride Carbon Dioxide Anion Gap BUN Creatinine Random Glucose Calcium Phosphorus Magnesium Troponin I < 0.02 D HOSPITAL COURSE: Date of Admission:08/12/17 The patient is a 61 yo m w/ PMH who came into the ED c/o a 1 day history of exertional substernal cheat pain. In the ED, troponins were negative x1, but an EKG showed NSR w/ t wave inversions. He was admitted to r/o [place] and to receive an inpatient stress test. Cardiology was consulted. Troponins were negative x3 and the patient was taken for Lexiscan pharmacologic stress test. After returning from the test, the patient developed worsening ST depressions and T wave inversions and began to complain of left arm discomfort. Stress test preliminary report was positive. The patient was treated with ASA, Nitro paste, and a heparin drip was started. Cardiology was called and the patient was transferred to a tertiary care center for cath. Date of Discharge: 08/13/17 Minutes to complete discharge: 40 Discharge Summary Reason For Visit: CHEST PAIN Condition: Stable - Instructions Diet, Activity, Other Instructions: You are being transferred to a tertiary [facility] center for further treatment of your heart condition. Please read all of the instructions they give you when you are discharged home as your doctors there may change some of your medications. If you begin to feel chest pain, shortness of breath or if any of your symptoms get worse, please call your doctor or return to the emergency department. Referrals: Alejandro Sanchez MD [Staff Physician] - ON STAFF,NOT [Primary Care Provider] - Disposition: TRANSFER ACUTE CARE/OTHER HOSP - Home Medications Comprehensive Discharge Medication List: Ambulatory Orders Aspirin 81 mg PO DAILY 08/11/17 Atorvastatin Ca [Lipitor] 20 mg PO HS 08/11/17 Clopidogrel Bisulfate [Plavix] 75 mg PO DAILY 08/11/17 Lisinopril 10 mg PO DAILY 08/11/17 Metoprolol Succinate 25 mg PO DAILY 08/11/17 This patient is new to me today: No Emergency Visit: Yes ED Registration Date: 08/12/17 Care time: The patient presented to the Emergency Department on the above date and was hospitalized for further evaluation of their emergent condition. Critical Care patient: Yes Total Critical Care Time (in minutes): 60 Critical Care Statement: The care of this patient involved high complexity decision making to prevent further life threatening deterioration of the patient 's condition and/or to evaluate & treat vital organ system(s) failure or risk of failure. - Discharge Referral Referred to [facility] No
== END 2017-08-13 15:40 | disposition short-term general hospital (02) ==
LOC: JER 14:22 → INTOOBSV 16:56 → UNDOADMOB 16:56 → JERBED 16:56 → J2W 22:31 → JERBED 08-12 16:35 → J2W 08-12 16:35
PROVIDERS: ADMIT Internal Medicine; ATTEND Internal Medicine
PROC: 3E033GC Introduction of Other Therapeutic Substance into Peripheral Vein, Percutaneous Approach (ICD-10-PCS; principal; 2017-08-12)
DX: I25.110 Atherosclerotic heart disease of native coronary artery with unstable angina pectoris (principal); R07.9 Chest pain, unspecified; I10 Essential (primary) hypertension; Z87.891 Personal history of nicotine dependence; E78.5 Hyperlipidemia, unspecified; Z95.5 Presence of coronary angioplasty implant and graft; R51 Headache
CPT/HCPCS: 36415; 70450-TC; 71045-TC-FY; 78452-TC; 80048; 80053; 80061; 82550; 83721; 83735; 84100; 84443; 84484; 85025; 85027; 85610; 85730; 93005; 93010; 93017; 93306-TC; 96374; 96375; 99285-25; A9502; G0378; J1644; J2785

== ENCOUNTER 2018-06-06 14:50 | Emergency (ER) | payer OTHER ==
[2018-06-06 15:07] VITALS: BP 132/99; PULSE 78; TEMP 98.6; BMI 24.8
== END 2018-06-06 18:00 | disposition left against medical advice (07) ==
LOC: JER 14:50
DX: R22.0 Localized swelling, mass and lump, head (principal)
CPT/HCPCS: 99281-25